=== PATIENT | male | born 1970 | race Caucasian/White ===

== ENCOUNTER 2017-05-01 12:30 | Emergency (ER) | payer SELFPAY ==
[2017-05-01] MEDS ORDERED: Ondansetron 4 MG/2 ML SDV IVPUSH ONE (12:42)
[2017-05-01] MEDS ORDERED: Sodium Chloride 0.9% 10 ML Syringe FLUSH PRN (12:42)
[2017-05-01] MEDS ORDERED: Sodium Chloride 0.9% 1,000 ML IV STA (12:42)
[2017-05-01] MEDS ORDERED: LORazepam 2 MG/ML MDV IVPUSH ONE ×4 (12:43→17:39)
--- NOTE | 2017-05-01 13:30 | CT ---
Head CT Technique: Multiple axial sections through the brain were obtained. Intravenous contrast was not utilized. Comparison: No previous intracranial imaging. Findings: CSF collection is seen extra-axially within the left posterior fossa in the area of the left cerebellar hemisphere. This is felt compatible with an arachnoid cyst measuring 4.9 cm by approximately 1.6 cm. Ventricles along the basal cisterns and sulci over convexities are mildly prominent. No abnormal parenchymal densities are seen. No evidence of intracranial hemorrhage. No midline shift or mass effect is seen. Bone window settings were reviewed which shows no acute calvarial abnormality. Visualized sinuses are clear. Impression: 1. Arachnoid cyst within the left posterior fossa. 2. Mild generalized atrophy. 3. No acute intracranial abnormality is identified on noncontrast head CT exam. Diagnostic code #2
[2017-05-01] MEDS ORDERED: Sodium Chloride 0.9% 1,000 ML IV ONE (14:07)
--- NOTE | 2017-05-01 14:18 | EDM.PDOC ---
ED HPI GENERAL MEDICAL PROBLEM - General Chief Complaint: Neurological Problem Stated Complaint: [facility] Time Seen by Provider: 05/01/17 12:41 Source of Information: Reports: Patient History Limitations: Reports: No Limitations - History of Present Illness INITIAL COMMENTS - FREE TEXT/NARRATIVE: The patient presents by [facility] for a seizure. He was found outside in [place] and he had a seizure. He had [address] He has no history of seizures. He does drink alcohol daily. He last drank last night. He has no medical problems. He is alert and orientated when he arrived here. He did bite his tongue. He denies headache, neck pain, chest pain, shortness of breath, abdominal pain, or vomiting. Onset: Sudden Duration: Minutes: Location: Reports: Generalized Severity: Moderate Improves with: Reports: None Worsens with: Reports: None Associated Symptoms: Reports: Nausea/Vomiting. Denies: Chest Pain, Cough, Fever /Chills, Headaches, Shortness of Breath - Related Data Allergies Allergy/AdvReac Type Severity Reaction Status Date / Time No Known Allergies Allergy Verified 05/01/17 12:42 Home Meds: Home Meds . [No Known Home Meds] 05/01/17 [History] Past Medical History Other HEENT History: blood in mouth, no obvious bite /injury to tounge noted. Cardiovascular History: Reports: Hypertension - Past Surgical History Other Cardiovascular Surgeries/Procedures: States hx of HTN about one year ago but not put on any medication for it. Social & Family History - Family History Family Medical History: Noncontributory - Tobacco Use Smoking Status *Q: Never Smoker - Caffeine Use Caffeine Use: Reports: Energy Drinks, Soda - Alcohol Use Date of Last Drink: 05/01/17 - Recreational Drug Use Recreational Drug Use: Yes Drug Use in Last 12 Months: No Recreational Drug Type: Reports: Methamphetamine Recreational Drug Use Frequency: Not Used In Over 6 Months ED ROS GENERAL - Review of Systems Review Of Systems: See Below Constitutional: Reports: No Symptoms HEENT: Reports: No Symptoms Respiratory: Reports: No Symptoms Cardiovascular: Reports: No Symptoms Endocrine: Reports: No Symptoms GI/Abdominal: Reports: No Symptoms : Reports: No Symptoms Musculoskeletal: Reports: No Symptoms Skin: Reports: No Symptoms Neurological: Reports: Seizure - Physical Exam Exam: See Below Exam Limited By: No Limitations General Appearance: Alert, No Apparent Distress Ears: Normal External Exam Nose: Normal Inspection Throat/Mouth: Other (Superficial laceration to the left side of his tongue) Head Exam: Atraumatic, Normocephalic Neck: Normal Inspection Respiratory/Chest: No Respiratory Distress, Lungs Clear, Normal Breath Sounds Cardiovascular: Regular Rate, Rhythm, No Edema, No Murmur GI/Abdominal: Soft, Non-Tender, No Organomegaly, No Mass Neuro Exam (Abbreviated): Alert, Oriented, No Motor/Sensory Deficits Course - Vital Signs Last Recorded V/S: Last Vital Signs Temp 97.1 F 05/01/17 12:44 Pulse 161 H 05/01/17 12:44 Resp 27 H 05/01/17 12:44 BP 183/116 H 05/01/17 12:44 Pulse Ox 94 L 05/01/17 12:44 - Orders/Labs/Meds Orders: Active Orders 24 hr Category Date Time Status Peripheral IV Care [RC] . DIRECTED Care 05/01/17 12:42 Active Sodium Chloride 0.9% [Normal Saline] 1,000 ml Med 05/01/17 15:45 Active IV ASDIRECTED Sodium Chloride 0.9% [Saline Flush] Med 05/01/17 12:42 Active 10 ml FLUSH ASDIRECTED PRN ED Antiemetic Medication Reflex [OM.PC] Stat Oth 05/01/17 12:42 Ordered Peripheral IV Insertion Adult [OM.PC] Stat Oth 05/01/17 12:42 Ordered Medication Orders Sodium Chloride (Normal Saline) 1,000 mls @ 150 mls/hr IV ASDIRECTED TIMOTEO Last Admin: 05/01/17 15:46 Dose: 150 mls/hr Sodium Chloride (Saline Flush) 10 ml FLUSH ASDIRECTED PRN PRN Reason: Keep Vein Open Last Admin: 05/01/17 12:58 Dose: 10 ml Labs: Laboratory Tests 05/01/17 05/01/17 05/01/17 Range/Units 12:37 12:37 12:38 WBC 12.80 H (4.23-9.07) K/mm3 RBC 4.49 L (4.63-6.08) M/mm3 Hgb 14.8 (13.7-17.5) gm/L Hct 45.0 (40.1-51.0) % MCV 100.2 H (79.0-92.2) fl MCH 33.0 H (25.7-32.2) pg MCHC 32.9 (32.2-35.5) g/dl RDW Std Deviation 46.9 H (35.1-43.9) fL Plt Count 142 L (163-337) K/mm3 MPV 11.0 (9.4-12.3) fl Neut % (Auto) 72.8 H (34.0-67.9) % Lymph % (Auto) 17.9 L (21.8-53.1) % Posey % (Auto) 8.9 (5.3-12.2) % Eos % (Auto) 0 L (0.8-7.0) Baso % (Auto) 0.1 (0.1-1.2) % Neut # (Auto) 9.32 H (1.78-5.38) K/mm3 Lymph # (Auto) 2.29 (1.32-3.57) K/mm3 Posey # (Auto) 1.14 H (0.30-0.82) K/mm3 Eos # (Auto) 0.00 L (0.04-0.54) K/mm3 Baso # (Auto) 0.01 (0.01-0.08) K/mm3 Sodium 136 (136-145) mEq/L Potassium 3.6 (3.5-5.1) mEq/L Chloride 95 L (98-107) mEq/L Carbon Dioxide 8 L* (21-32) mEq/L Anion Gap 36.6 H (5-15) BUN 5 L (7-18) mg/dL Creatinine 1.6 H (0.7-1.3) mg/dL Est Cr Clr Drug Dosing 65.20 mL/min Estimated GFR (MDRD) 47 (>60) mL/min BUN/Creatinine Ratio 3.1 L (14-18) Glucose 253 H (74-106) mg/dL POC Glucose 239 H (70-105) mg/dL Calcium 9.3 (8.5-10.1) mg/dL Total Bilirubin 1.3 H (0.2-1.0) mg/dL AST 430 H (15-37) U/L ALT 255 H (16-63) U/L Alkaline Phosphatase 152 H (46-116) U/L Total Protein 8.6 H (6.4-8.2) g/dl Albumin 4.0 (3.4-5.0) g/dl Globulin 4.6 gm/dL Albumin/Globulin Ratio 0.9 L (1-2) Urine Opiates Screen (NEGATIVE) Ur Buprenorphine Scrn (NEGATIVE) Ur Oxycodone Screen (NEGATIVE) Urine Methadone Screen (NEGATIVE) Ur Propoxyphene Screen (NEGATIVE) Ur Barbiturates Screen (NEGATIVE) Ur Tricyclics Screen (NEGATIVE) Ur Phencyclidine Scrn (NEGATIVE) Ur Amphetamine Screen (NEGATIVE) U Methamphetamines Scrn (NEGATIVE) U Benzodiazepines Scrn (NEGATIVE) U Cocaine Metab Screen (NEGATIVE) U Marijuana (THC) Screen (NEGATIVE) Ethyl Alcohol 0.00 (0.00) gm% 05/01/17 Range/Units 13:11 WBC (4.23-9.07) K/mm3 RBC (4.63-6.08) M/mm3 Hgb (13.7-17.5) gm/L Hct (40.1-51.0) % MCV (79.0-92.2) fl MCH (25.7-32.2) pg MCHC (32.2-35.5) g/dl RDW Std Deviation (35.1-43.9) fL Plt Count (163-337) K/mm3 MPV (9.4-12.3) fl Neut % (Auto) (34.0-67.9) % Lymph % (Auto) (21.8-53.1) % Posey % (Auto) (5.3-12.2) % Eos % (Auto) (0.8-7.0) Baso % (Auto) (0.1-1.2) % Neut # (Auto) (1.78-5.38) K/mm3 Lymph # (Auto) (1.32-3.57) K/mm3 Posey # (Auto) (0.30-0.82) K/mm3 Eos # (Auto) (0.04-0.54) K/mm3 Baso # (Auto) (0.01-0.08) K/mm3 Sodium (136-145) mEq/L Potassium (3.5-5.1) mEq/L Chloride (98-107) mEq/L Carbon Dioxide (21-32) mEq/L Anion Gap (5-15) BUN (7-18) mg/dL Creatinine (0.7-1.3) mg/dL Est Cr Clr Drug Dosing mL/min Estimated GFR (MDRD) (>60) mL/min BUN/Creatinine Ratio (14-18) Glucose (74-106) mg/dL POC Glucose (70-105) mg/dL Calcium (8.5-10.1) mg/dL Total Bilirubin (0.2-1.0) mg/dL AST (15-37) U/L ALT (16-63) U/L Alkaline Phosphatase (46-116) U/L Total Protein (6.4-8.2) g/dl Albumin (3.4-5.0) g/dl Globulin gm/dL Albumin/Globulin Ratio (1-2) Urine Opiates Screen Negative (NEGATIVE) Ur Buprenorphine Scrn Negative (NEGATIVE) Ur Oxycodone Screen Negative (NEGATIVE) Urine Methadone Screen Negative (NEGATIVE) Ur Propoxyphene Screen Negative (NEGATIVE) Ur Barbiturates Screen Negative (NEGATIVE) Ur Tricyclics Screen Negative (NEGATIVE) Ur Phencyclidine Scrn Negative (NEGATIVE) Ur Amphetamine Screen Negative (NEGATIVE) U Methamphetamines Scrn Negative (NEGATIVE) U Benzodiazepines Scrn Negative (NEGATIVE) U Cocaine Metab Screen Negative (NEGATIVE) U Marijuana (THC) Screen Negative (NEGATIVE) Ethyl Alcohol (0.00) gm% Meds: Medications Generic Name Dose Route Start Last Admin Trade Name Freq PRN Reason Stop Dose Admin Sodium Chloride 1,000 mls @ 150 mls/hr 05/01/17 15:45 05/01/17 15:46 Normal Saline IV 150 mls/hr ASDIRECTED TIMOTEO Administration Sodium Chloride 10 ml 05/01/17 12:42 05/01/17 12:58 Saline Flush FLUSH 10 ml ASDIRECTED PRN Administration Keep Vein Open Discontinued Medications Generic Name Dose Route Start Last Admin Trade Name Freq PRN Reason Stop Dose Admin Al Hydroxide/Mg Hydroxide 30 0 ml 05/01/17 16:33 05/01/17 16:42 ml/ Lidocaine HCl 15 ml PO 05/01/17 16:34 45 ml ONETIME ONE Administration Sodium Chloride 1,000 mls @ 1,000 mls/hr 05/01/17 12:42 05/01/17 12:50 Normal Saline IV 05/01/17 13:41 1,000 mls/hr .BOLUS STA Administration Sodium Chloride 1,000 mls @ 1,000 mls/hr 05/01/17 14:07 05/01/17 14:16 Normal Saline IV 05/01/17 15:06 1,000 mls/hr ONETIME ONE Administration Lorazepam 1 mg 05/01/17 12:43 05/01/17 12:53 Ativan IVPUSH 05/01/17 12:44 1 mg ONETIME ONE Administration Lorazepam 1 mg 05/01/17 14:08 05/01/17 15:18 Ativan IVPUSH 05/01/17 14:09 1 mg ONETIME ONE Administration Lorazepam 1 mg 05/01/17 16:32 05/01/17 16:40 Ativan IVPUSH 05/01/17 16:33 1 mg ONETIME ONE Administration Ondansetron HCl 4 mg 05/01/17 12:42 05/01/17 12:57 Zofran IVPUSH 05/01/17 12:43 4 mg ONETIME ONE Administration - Re-Assessments/Exams Free Text/Narrative Re-Assessment/Exam: 05/01/17 14:14 I ordered an IV NS 1L bolus, ativan 1mg IV, labs, and CT of his head. His WBC was elevated at 12.8. His platelets are low at 142. His CO2 is low at 8. His creatinine is elevated at 1.6. His glucose is elevated at 253. His total bili is elevated at 1.3. His AST is elevated at 430. His ALT is elevated at 255. His alk phos is elevated at 152. His UDS is negative. HIs ETOH is at zero now. His CT of his head shows an arachnoid cyst within the left posterior fossa. Mild generalized atrophy. No acute intracranial abnormality is identified on noncontrast head CT exam. He is still shaking so I ordered ativan 1mg IV and another liter of fluids. 05/01/17 17:37 His uncle showed up along with some friends and they are all concerned about his drinking. They are worried he could have today. I do [place]. The patient does not want to stop drinking but I feel he needs help. I called [facility] in [place] and talked with Dr Finney and she accepted the patient. The patient will go by ambulance and a warehouse checker's deputy. Departure - Departure Time of Disposition: 18:00 Disposition: DC/Tfer to [facility] Condition: Serious Clinical Impression: Seizure Tongue laceration Qualifiers: Encounter type: initial encounter Qualified Code(s): S01.512A - Laceration without foreign body of oral cavity, initial encounter Alcohol withdrawal Qualifiers: Complication of substance-induced condition: uncomplicated Qualified Code(s): F10.230 - Alcohol dependence with withdrawal, uncomplicated - Discharge Information Referrals: PCP,None [Primary Care Provider] - Forms: ED Department Discharge - My Orders Last 24 Hours: My Active Orders 05/01/17 12:42 Peripheral IV Care [RC] . DIRECTED Sodium Chloride 0.9% [Saline Flush] 10 ml FLUSH ASDIRECTED PRN ED Antiemetic Medication Reflex [OM.PC] Stat Peripheral IV Insertion Adult [OM.PC] Stat 05/01/17 15:45 Sodium Chloride 0.9% [Normal Saline] 1,000 ml IV ASDIRECTED - Assessment/Plan Last 24 Hours: My Active Orders 05/01/17 12:42 Peripheral IV Care [RC] . DIRECTED Sodium Chloride 0.9% [Saline Flush] 10 ml FLUSH ASDIRECTED PRN ED Antiemetic Medication Reflex [OM.PC] Stat Peripheral IV Insertion Adult [OM.PC] Stat 05/01/17 15:45 Sodium Chloride 0.9% [Normal Saline] 1,000 ml IV ASDIRECTED
[2017-05-01] MEDS ORDERED: Sodium Chloride 0.9% 1,000 ML IV SCH (15:45)
[2017-05-01] MEDS ORDERED: Alum Hydrox/Mag Hydrox/Simeth 30 ML, Lidocaine 2% 15 ML PO ONE ×2 (16:33)
== END 2017-05-01 19:15 ==
LOC: JD.ED 12:30 → EDBD 12:30 → JD.ED 19:15
DX: R56.9 Unspecified convulsions (principal); S01.512A Laceration without foreign body of oral cavity, initial encounter; F10.230 Alcohol dependence with withdrawal, uncomplicated; I10 Essential (primary) hypertension; X58.XXXA Exposure to other specified factors, initial encounter
CPT/HCPCS: 36415; 70450; 80053; 80306; 82962; 85025; 96361; 96374; 96375; 96376; 99285; A9270; G0480; J2060; J2405; J7040; J7050

== ENCOUNTER 2020-10-27 12:10 | Emergency (ER) | payer MEDICAID ==
[2020-10-27] MEDS ORDERED: Ondansetron 4 MG/2 ML SDV IVPUSH ONE (12:48)
[2020-10-27] MEDS ORDERED: Sodium Chloride 0.9% 10 ML Syringe FLUSH PRN (12:48)
[2020-10-27] MEDS ORDERED: Furosemide 40 MG/4 ML VIAL IVPUSH ONE (12:54)
[2020-10-27] MEDS ORDERED: Spironolactone 100 MG Tab PO ONE (12:54)
--- NOTE | 2020-10-27 12:54 | EDM.PDOC ---
ED HPI GENERAL MEDICAL PROBLEM - General Chief Complaint: Abdominal Pain Stated Complaint: constipation swollen ankles and adominal pain Time Seen by Provider: 10/27/20 12:25 Source of Information: Reports: Patient, RN Notes Reviewed History Limitations: Reports: No Limitations - History of Present Illness INITIAL COMMENTS - FREE TEXT/NARRATIVE: Patient is a 50-year-old male who presents to the ER for the evaluation of his abdomen discomfort, and leg swelling. The patient states that he is an everyday alcohol drinker, and he has been doing this for many years. States he drinks about 6 beers per day and usually never misses a day. Last alcohol intake was yesterday afternoon. He comes in today because he is concerned about the size of his abdomen, and the size of his legs, he states that it is getting harder and harder to do daily activities, when he is showering, is hard to bend over to wash his feet or legs. He has a very protuberant abdomen, and at least 3-4+ pitting edema on his bilateral extremities, that seems to extend up to about his mid thighs. He is denying any swelling into his scrotum at this time. He states that he is not short of breath, he is having no cough, no fevers or chills. States that he slightly nauseous but no vomiting or diarrhea. States that he actually feels quite constipated he is not had a normal bowel movement in the last 3 weeks or so. He has been trying to use laxatives, and enemas to try to provide bowel movements, but nothing seems to be working. States that the fluid retention seems to have started roughly 2 months ago. States that his weight then was around 180 pounds, and now he is up to 200 pounds. He has no regular provider. He takes no regular medications. Abdomen Pain Score (Numeric/FACES): 7 - Related Data Allergies Allergy/AdvReac Type Severity Reaction Status Date / Time No Known Allergies Allergy Verified 05/01/17 12:42 Home Meds: Home Meds . [No Known Home Meds] 05/01/17 [History] Past Medical History HEENT History: Reports: Other (See Below) Other HEENT History: blood in mouth, no obvious bite /injury to tounge noted. Cardiovascular History: Reports: Hypertension (but not medicated) Gastrointestinal History: Reports: Jaundice, Other (See Below) Other Gastrointestinal History: ascites; liver issues Psychiatric History: Reports: Addiction, Anxiety - Infectious Disease History Infectious Disease History: Reports: Chicken Pox Social & Family History - Family History Family Medical History: No Pertinent Family History - Tobacco Use Tobacco Use Status *Q: Current Every Day Tobacco User Years of Tobacco use: 28 Packs/Tins Daily: 0.7 - Caffeine Use Caffeine Use: Reports: Energy Drinks, Soda - Alcohol Use Alcohol Use History: Yes Days Per Week of Alcohol Use: 7 Number of Drinks Per Day: 6 Total Drinks Per Week: 42 Alcohol Use in Last Twelve Months: Yes Alcohol Use Frequency: Daily ED ROS GENERAL - Review of Systems Review Of Systems: Comprehensive ROS is negative, except as noted in HPI. ED EXAM, GI/ABD - Physical Exam Exam: See Below Exam Limited By: No Limitations General Appearance: Alert, WD/WN, No Apparent Distress Eyes: Bilateral: EOMI (bilateral eyes with scleral icterus) Respiratory/Chest: No Respiratory Distress, Lungs Clear, Normal Breath Sounds, No Accessory Muscle Use, Chest Non-Tender Cardiovascular: Normal Peripheral Pulses, Regular Rate, Rhythm, No Edema GI/Abdominal Exam: Normal Bowel Sounds, Soft, Distended (generalized; abdomen is protuberant), Tender (very slightly to palpation-pt states that his whole abomen feels tense) Extremities: Normal Inspection, Normal Capillary Refill Neurological: Alert, Oriented, Normal Cognition, No Motor/Sensory Deficits Psychiatric: Normal Affect, Normal Mood Skin Exam: Warm, Dry, Intact, Normal Color, No Rash #1 Interpretation EKG Date: 10/27/20 Time: 13:35 Rhythm: NSR (sinus tach) Rate (Beats/Min): 101 [place]: LAD-Left [place] Deviation (Borderline IVCD with LAD) P-Wave: Present QRS: Normal ST-T: Normal QT: Normal Comparison: NA - No Prior EKG EKG Interpretation Comments: No obvious ischemia or acute ST changes noted, reviewed by myself and Dr. Canada. Course - Vital Signs Last Recorded V/S: Last Vital Signs Temp 98.2 F 10/27/20 12:37 Pulse 110 H 10/27/20 12:37 Resp 20 10/27/20 12:37 BP 167/95 H 10/27/20 12:37 Pulse Ox 97 10/27/20 12:37 - Orders/Labs/Meds Orders: Active Orders 24 hr Category Date Time Status Peripheral IV Care [RC] . DIRECTED Care 10/27/20 12:48 Active INR,PT,PROTHROMBIN TIME [COAG] Stat Lab 10/27/20 15:15 Ordered MAGNESIUM [CHEM] Stat Lab 10/27/20 15:22 Ordered PTT,PARTIAL THROMBOPLSTIN TIME [COAG] Stat Lab 10/27/20 15:15 Ordered Sodium Chloride 0.9% [Saline Flush] Med 10/27/20 12:48 Active 10 ml FLUSH ASDIRECTED PRN Sodium Chloride 0.9% [Saline Flush] Med 10/27/20 13:18 Active 10 ml FLUSH ONETIME PRN Peripheral IV Insertion Adult [OM.PC] Stat Oth 10/27/20 12:48 Ordered Medication Orders Sodium Chloride (Sodium Chloride 0.9% 10 Ml Syringe) 10 ml FLUSH ASDIRECTED PRN PRN Reason: Keep Vein Open Last Admin: 10/27/20 13:11 Dose: 10 ml Documented by: BJ Sodium Chloride (Sodium Chloride 0.9% 10 Ml Syringe) 10 ml FLUSH ONETIME PRN PRN Reason: Keep Vein Open Last Admin: 10/27/20 14:28 Dose: 10 ml Documented by: Admin: 10/27/20 13:33 Dose: 10 ml Documented by: REGI Labs: Laboratory Tests 10/27/20 10/27/20 10/27/20 Range/Units 12:40 12:40 12:40 WBC 19.20 H (4.23-9.07) K/mm3 RBC 3.75 L (4.63-6.08) M/mm3 Hgb 14.2 (13.7-17.5) gm/dl Hct 39.1 L (40.1-51.0) % MCV 104.3 H D (79.0-92.2) fl MCH 37.9 H (25.7-32.2) pg MCHC 36.3 H (32.2-35.5) g/dl RDW Std Deviation 63.0 H (35.1-43.9) fL Plt Count 233 D (163-337) K/mm3 MPV 10.5 (9.4-12.3) fl Neut % (Auto) 76.7 H (34.0-67.9) % Lymph % (Auto) 10.4 L (21.8-53.1) % Hood % (Auto) 12.2 (5.3-12.2) % Eos % (Auto) 0 L (0.8-7.0) Baso % (Auto) 0.2 (0.1-1.2) % Neut # (Auto) 14.72 H (1.78-5.38) K/mm3 Lymph # (Auto) 2.00 (1.32-3.57) K/mm3 Hood # (Auto) 2.35 H (0.30-0.82) K/mm3 Eos # (Auto) 0.00 L (0.04-0.54) K/mm3 Baso # (Auto) 0.03 (0.01-0.08) K/mm3 Manual Slide Review Abnormal smear Sodium 128 L (136-145) mEq/L Potassium 2.4 L* (3.5-5.1) mEq/L Chloride 89 L (98-107) mEq/L Carbon Dioxide 35 H D (21-32) mEq/L Anion Gap 6.4 (5-15) BUN 6 L (7-18) mg/dL Creatinine 1.2 (0.7-1.3) mg/dL Est Cr Clr Drug Dosing 80.83 mL/min Estimated GFR (MDRD) > 60 (>60) mL/min BUN/Creatinine Ratio 5.0 L (14-18) Glucose 102 H (70-99) mg/dL Calcium 7.5 L D (8.5-10.1) mg/dL Total Bilirubin 7.5 H 7.4 H (0.2-1.0) mg/dL Direct Bilirubin 3.90 H (0.0-0.2) mg/dl Indirect Bilirubin 3.50 GGT 191 H (15-85) U/L AST 146 H (15-37) U/L ALT 40 (16-63) U/L Alkaline Phosphatase 189 H (46-116) U/L C-Reactive Protein 8.6 H* (<1.0) mg/dL Total Protein 8.3 H (6.4-8.2) g/dl Albumin 1.9 L (3.4-5.0) g/dl Globulin 6.4 gm/dL Albumin/Globulin Ratio 0.3 L (1-2) Lipase 141 (73-393) U/L Urine Color (Yellow) Urine Appearance (Clear) Urine pH (5.0-8.0) Ur Specific [place] (1.005-1.030) Urine Protein (Negative) Urine Glucose (UA) (Negative) Urine Ketones (Negative) Urine Occult Blood (Negative) Urine Nitrite (Negative) Urine Bilirubin (Negative) Urine Urobilinogen (0.2-1.0) Ur Leukocyte Esterase (Negative) U Hyaline Cast (Auto) (0-5) /lpf Urine RBC (0-5) /hpf Urine WBC (0-5) /hpf Ur Epithelial Cells (0-5) /hpf Urine Bacteria (FEW) /hpf Urine Mucus (FEW) /hpf SARS-CoV-2 RNA (ROLY) (NEGATIVE) 10/27/20 10/27/20 Range/Units 13:15 14:05 WBC (4.23-9.07) K/mm3 RBC (4.63-6.08) M/mm3 Hgb (13.7-17.5) gm/dl Hct (40.1-51.0) % MCV (79.0-92.2) fl MCH (25.7-32.2) pg MCHC (32.2-35.5) g/dl RDW Std Deviation (35.1-43.9) fL Plt Count (163-337) K/mm3 MPV (9.4-12.3) fl Neut % (Auto) (34.0-67.9) % Lymph % (Auto) (21.8-53.1) % Hood % (Auto) (5.3-12.2) % Eos % (Auto) (0.8-7.0) Baso % (Auto) (0.1-1.2) % Neut # (Auto) (1.78-5.38) K/mm3 Lymph # (Auto) (1.32-3.57) K/mm3 Hood # (Auto) (0.30-0.82) K/mm3 Eos # (Auto) (0.04-0.54) K/mm3 Baso # (Auto) (0.01-0.08) K/mm3 Manual Slide Review Sodium (136-145) mEq/L Potassium (3.5-5.1) mEq/L Chloride (98-107) mEq/L Carbon Dioxide (21-32) mEq/L Anion Gap (5-15) BUN (7-18) mg/dL Creatinine (0.7-1.3) mg/dL Est Cr Clr Drug Dosing mL/min Estimated GFR (MDRD) (>60) mL/min BUN/Creatinine Ratio (14-18) Glucose (70-99) mg/dL Calcium (8.5-10.1) mg/dL Total Bilirubin (0.2-1.0) mg/dL Direct Bilirubin (0.0-0.2) mg/dl Indirect Bilirubin GGT (15-85) U/L AST (15-37) U/L ALT (16-63) U/L Alkaline Phosphatase (46-116) U/L C-Reactive Protein (<1.0) mg/dL Total Protein (6.4-8.2) g/dl Albumin (3.4-5.0) g/dl Globulin gm/dL Albumin/Globulin Ratio (1-2) Lipase (73-393) U/L Urine Color Mami H (Yellow) Urine Appearance Clear (Clear) Urine pH 5.5 (5.0-8.0) Ur Specific [place] > or = 1.030 (1.005-1.030) Urine Protein 1+ H (Negative) Urine Glucose (UA) Trace H (Negative) Urine Ketones Trace H (Negative) Urine Occult Blood Trace-intact H (Negative) Urine Nitrite Negative (Negative) Urine Bilirubin 3+ H (Negative) Urine Urobilinogen 2.0 H (0.2-1.0) Ur Leukocyte Esterase Negative (Negative) U Hyaline Cast (Auto) 40-50 H (0-5) /lpf Urine RBC 0-5 (0-5) /hpf Urine WBC 0-5 (0-5) /hpf Ur Epithelial Cells Not seen (0-5) /hpf Urine Bacteria Many H (FEW) /hpf Urine Mucus Many H (FEW) /hpf SARS-CoV-2 RNA (ROLY) Negative (NEGATIVE) Meds: Medications Generic Name Dose Route Start Last Admin Trade Name Freq PRN Reason Stop Dose Admin Sodium Chloride 10 ml 10/27/20 12:48 10/27/20 13:11 Sodium Chloride 0.9% 10 Ml Syringe FLUSH 10 ml ASDIRECTED PRN Administration Keep Vein Open Sodium Chloride 10 ml 10/27/20 13:18 10/27/20 14:28 Sodium Chloride 0.9% 10 Ml Syringe FLUSH 10 ml ONETIME PRN Administration Keep Vein Open Discontinued Medications Generic Name Dose Route Start Last Admin Trade Name Le[place] PRN Reason Stop Dose Admin Diatrizoate Meglum/Diatrizoate Sod 40 ml 10/27/20 13:18 10/27/20 14:28 Diatrizoate Meglumine/Diatrizoate Sodium 37% 120 Ml Bottle PO 10/27/20 13:19 40 ml ONETIME ONE Administration Furosemide 40 mg 10/27/20 12:54 10/27/20 13:25 Furosemide 40 Mg/4 Ml Vial IVPUSH 10/27/20 12:55 Not Given NOW ONE Iopamidol 100 ml 10/27/20 13:18 10/27/20 14:28 Iopamidol 612 Mg/Ml 100 Ml Bottle IVPUSH 10/27/20 13:19 100 ml ONETIME ONE Administration Ondansetron HCl 4 mg 10/27/20 12:48 10/27/20 13:11 Ondansetron 4 Mg/2 Ml Sdv IVPUSH 10/27/20 12:49 4 mg ONETIME ONE Administration Potassium Chloride 40 meq 10/27/20 15:22 Potassium Chloride 20 Meq Tab.Er PO 10/27/20 15:23 ONETIME ONE Spironolactone 100 mg 10/27/20 12:54 10/27/20 13:30 Spironolactone 100 Mg Tab PO 10/27/20 12:55 100 mg ONETIME ONE Administration - Re-Assessments/Exams Free Text/Narrative Re-Assessment/Exam: 10/27/20 13:02 Patient presents to the ER for the evaluation of his abdomen pain, and leg swelling. It is fairly clinically obvious, that he is suffering from ascites, with possible jaundice, the sclera of his eyes are slightly yellow as well. We will go ahead and get some labs, and get abdomen pelvis CT with oral and IV contrast for ongoing management, we will start the patient on furosemide and spironolactone initially after the CMP has been resulted so we can check electrolyte levels. 10/27/20 13:29 Patient's laboratory evaluation has resulted for the most part, CBC demonstrates a white count elevated at 19.2 with 76% neutrophils. There are some macrocytic changes to his white count however he is not anemic. Metabolic panel demonstrates a sodium low at 128, potassium low at 2.4, total bilirubin high at 7.5, GGT high at 191, AST high at 146, ALP high 189, CRP is high at 8.6, albumin is low at 1.9, lipase is within normal limits at this time. I did initially order Lasix and spironolactone for initial management, however we will hold off on the Lasix. We will also get a EKG just because of the hypokalemia changes for further evaluation as well. Very likely this patient would necessitate hospitalization for ongoing management due to cirrhosis and his ascites. 10/27/20 14:04 The patient's EKG demonstrates no sign of acute ST change or changes from the potassium levels this was reviewed by myself and Dr. Canada. The patient's indirect and direct bilirubin have been done, the direct bilirubin is elevated at 3.9, indirect is resulted at 3.5 at this time. 10/27/20 14:50 At around 1440, the patient did have to urgently use the restroom, and bolted out of his bed, and ended up falling down onto his knees, in the ER hallway and then made himself to the bathroom. He states he did not hit his head, and is not having pain in his knees or otherwise. He was helped to the bathroom after the initial fall, he was moving too quickly in order for me to help ambulate him to the bathroom initially. This fall was visualized by myself. 10/27/20 15:24 CT report does demonstrate cirrhosis with moderate ascites. No other major intra-abdominal changes at this time. I did call [facility] in [place], and talked with GI, Dr. Hernandez, and the hospitalist Dr. Garrett and they did ultimately accept the patient in transfer. They did request a PT/INR, and magnesium level to be obtained, if the patient was going to be detained here for small amount of time so we can start supplementation if needed. Dr. Garrett also asked if we could give 40 mg once oral potassium and this has been ordered. Departure - Departure Time of Disposition: 15:25 Disposition: DC/Tfer to [facility] 02 Condition: Fair Clinical Impression: Cirrhosis of liver with ascites Qualifiers: Hepatic cirrhosis type: alcoholic cirrhosis Qualified Code(s): K70.31 - Alcoholic cirrhosis of liver with ascites - Discharge Information *PRESCRIPTION DRUG MONITORING PROGRAM REVIEWED*: No *COPY OF PRESCRIPTION DRUG MONITORING REPORT IN PATIENT KIMBERLEE: No Referrals: PCP,None [Primary Care Provider] - Forms: ED Department Discharge Sepsis Event Note (ED) - Focused Exam Vital Signs: Vital Signs Temp Pulse Resp BP Pulse Ox 10/27/20 12:37 98.2 F 110 H 20 167/95 H 97 - My Orders Last 24 Hours: My Active Orders 10/27/20 12:48 Peripheral IV Care [RC] . DIRECTED Sodium Chloride 0.9% [Saline Flush] 10 ml FLUSH ASDIRECTED PRN Peripheral IV Insertion Adult [OM.PC] Stat 10/27/20 13:18 Sodium Chloride 0.9% [Saline Flush] 10 ml FLUSH ONETIME PRN 10/27/20 15:15 INR,PT,PROTHROMBIN TIME [COAG] Stat PTT,PARTIAL THROMBOPLSTIN TIME [COAG] Stat 10/27/20 15:22 MAGNESIUM [CHEM] Stat - Assessment/Plan Last 24 Hours: My Active Orders 10/27/20 12:48 Peripheral IV Care [RC] . DIRECTED Sodium Chloride 0.9% [Saline Flush] 10 ml FLUSH ASDIRECTED PRN Peripheral IV Insertion Adult [OM.PC] Stat 10/27/20 13:18 Sodium Chloride 0.9% [Saline Flush] 10 ml FLUSH ONETIME PRN 10/27/20 15:15 INR,PT,PROTHROMBIN TIME [COAG] Stat PTT,PARTIAL THROMBOPLSTIN TIME [COAG] Stat 10/27/20 15:22 MAGNESIUM [CHEM] Stat
[2020-10-27] MEDS ORDERED: Iopamidol 612 MG/ML 100 ML Bottle IVPUSH ONE (13:18)
[2020-10-27] MEDS ORDERED: Diatrizoate Meglumine/Diatrizoate Sodium 37% 120 ML Bottle PO ONE (13:18)
[2020-10-27] MEDS: Sodium Chloride 0.9% 10 ML Syringe FLUSH PRN ×2 (13:33→14:28)
--- NOTE | 2020-10-27 14:55 | CT ---
CT abdomen and pelvis Technique: Multiple axial sections were obtained from above the dome of the diaphragm inferiorly through the pubic symphysis. Intravenous and oral contrast were utilized. Delayed images were also obtained through the abdomen and pelvis. Reconstructed coronal and sagittal images were obtained. Comparison: No prior abdominal imaging is available. Findings: Visualized lung bases show nothing acute. Liver is small in size compatible with cirrhosis. Moderate amount of ascites is seen around the upper abdomen extending down the paracolic gutters into the pelvis. Spleen size is normal. Minimal contrast is seen within the esophagus presumably due to reflux. Liver shows no focal parenchymal abnormality. Gallbladder contains no calcified gallstones. Pancreas is within normal limits. Adrenal glands show no nodule. Kidneys show symmetric contrast enhancement. No hydronephrosis or mass is seen. Delayed images show contrast excretion from both kidneys. Two ureters are noted on the right side which join distally. Single ureter is seen on the left side. Contrast is noted within all ureters and bladder. Abdominal aorta shows no aneurysm. No retroperitoneal adenopathy or discrete mesenteric abnormalities are seen. Diverticuli are seen within the sigmoid colon. No discrete inflammatory change is seen. Appendix is not visualized with certainty. Slight bowel wall thickening is seen within the right colon most likely relating to the ascites. Focal fluid collections are seen within the subcutaneous tissues over both hips compatible with soft tissue edema. Bone window settings were reviewed which show slight degenerative change within the spine. No acute osseous abnormality is appreciated. Impression: 1. Small liver compatible with cirrhosis. Moderate amount of ascites is seen. 2. Small amount of gastroesophageal reflux is noted. 3. Bowel wall thickening within the right colon most likely relating to the patient's ascites. 4. Other findings believed to be incidental as noted above. Diagnostic code #3
[2020-10-27] MEDS ORDERED: Potassium Chloride 20 MEQ Tab.ER PO ONE (15:22)
[2020-10-27] MEDS ORDERED: Magnesium Sulfate/Water 2 GM in Premix Bag 1 BAG IV ONE (15:48)
== END 2020-10-27 16:25 ==
LOC: JD.ED 12:10
DX: K70.31 Alcoholic cirrhosis of liver with ascites (principal); I10 Essential (primary) hypertension; Z72.0 Tobacco use; Z20.822 Contact with and (suspected) exposure to COVID-19
CPT/HCPCS: 36415; 74177; 80053; 81001; 82247; 82248; 82977; 83690; 83735; 85025; 85610; 85730; 86140; 87635; 87804; 93005; 96374; 96375; 99285; A9270; J2405; J3475; Q9963; Q9967; 93010; U0002